=== PATIENT | female | born 1985 ===

== ENCOUNTER 2023-09-01 07:52 | Day surgery (SDC) | payer OTHER, MEDICAID ==
[2023-08-31 11:30] VITALS: BMI 37.4
[2023-09-01] MEDS ORDERED: Oxymetazoline HCl 0.05% (30 ML BOT) ONE ×2 (09:43→10:30)
[2023-09-01] MEDS ORDERED: fentaNYL PF 100 MCG/2 ML SYRINGE ONE (10:12)
[2023-09-01] MEDS ORDERED: Ketamine 50 MG/ML (10ML VIAL) ONE (10:12)
[2023-09-01] MEDS ORDERED: EPINEPHrine 1 MG/ML AMP ONE (10:30)
[2023-09-01] MEDS ORDERED: Lidocaine 1% (PF) 30 ML VIAL ONE (10:30)
[2023-09-01 10:49] LABS: Hematocrit 40.6 % (36.0-47.0)
[2023-09-01 10:56] LABS: BHCG - Serum Negative (NEGATIVE); Pregs Control Background? CLEAR/WHITE (CLR/WHITE); Pregs Control Bar Appear? YES (CONTROL BAR)
[2023-09-01] MEDS ORDERED: Dexamethasone 20 MG/5 ML VIAL ONE (11:01)
[2023-09-01] MEDS ORDERED: Esmolol 100 MG/10 ML VIAL ONE (11:01)
[2023-09-01] MEDS ORDERED: Glycopyrrolate 0.2 MG/ML 5 ML SYRINGE ONE (11:01)
[2023-09-01] MEDS ORDERED: PROPOFOL 200 MG/20 ML VIAL ONE (11:01)
[2023-09-01] MEDS ORDERED: PHENYLEPHRINE-NS 100 MCG/ML 10 ML SYRINGE ONE (11:01)
[2023-09-01] MEDS ORDERED: Ondansetron PF 4 MG/2 ML Vial ONE (11:01)
[2023-09-01] MEDS ORDERED: Succinylcholine 200 MG/10 ml SYRINGE FS ONE (11:01)
[2023-09-01] MEDS ORDERED: Rocuronium Bromide 10 MG/ML (10ML VIAL) ONE (11:01)
[2023-09-01] MEDS ORDERED: SUGAMMADEX SODIUM 200 MG/2 ML VIAL ONE (11:13)
[2023-09-01] MEDS ORDERED: Ferric Subsulfate (ASTRINGYN) 8 GM VIAL ONE (11:24)
[2023-09-01] MEDS ORDERED: fentaNYL 50 mcg/mL 1 mL Vial ONE ×5 (12:02→14:04)
[2023-09-01] MEDS ORDERED: hydrALAZINE 20 MG/ML VIAL ONE (12:33)
[2023-09-01] MEDS ORDERED: Labetalol HCl 100 MG/20 ML VIAL ONE (13:31)
[2023-09-01] MEDS ORDERED: Hydrocodone-Acetamin 15 ML UDCUP ONE (14:53)
== END 2023-09-01 15:25 | disposition home or self-care (01) ==
LOC: SDC 07:52
PROVIDERS: ATTEND Specialist
PROC: 0CTPXZZ Resection of Tonsils, External Approach (ICD-10-PCS; principal; 2023-09-01)
PROC: 09TL8ZZ Resection of Nasal Turbinate, Via Natural or Artificial Opening Endoscopic (ICD-10-PCS; 2023-09-01)
PROC: 0CTN0ZZ Resection of Uvula, Open Approach (ICD-10-PCS; 2023-09-01)
DX: J35.3 Hypertrophy of tonsils with hypertrophy of adenoids (principal); J35.01 Chronic tonsillitis; J34.3 Hypertrophy of nasal turbinates; K13.79 Other lesions of oral mucosa; G47.33 Obstructive sleep apnea (adult) (pediatric)
CPT/HCPCS: 30140; 42826; 84703; 85014; J0360; J3010; 88304; J0171; J1100; J2001; J2405; J2704